=== PATIENT | female | born 1960 | race Caucasian/White ===

== ENCOUNTER 2024-04-10 10:10 | Inpatient (IN) | payer MEDICARE, OTHER ==
[2024-04-10 12:04] LABS: BASO % 0.4 % (0-2.0); EOS % 2.5 % (0-4.5); HEMATOCRIT 34.7 % (32.4-45.2); HEMOGLOBIN 10.8 GM/dL (10.7-15.3); LYMPH % 17.1 % (8-40); MCH 25.1 pg (25.7-33.7); MEAN CELL VOLUME 80.9 fl (80-96); MEAN PLT VOLUME 7.8 fl (7.5-11.1); MONO % 4.2 % (3.8-10.2); NEUT % 75.8 % (42.8-82.8); PLATELET COUNT 275 10^3/uL (134-434); RBC 4.28 M/mm3 (3.60-5.2); RDW 16.3 % (11.6-15.6); WHITE BLOOD COUNT 11.6 K/mm3 (4.0-10.0)
[2024-04-10 12:09] LABS: INR 0.99 (0.83-1.09); PROTHROMBIN TIME (PATIENT) 11.4 SEC (9.7-13.0)
[2024-04-10 12:12] LABS: ACTIVATED PTT 30.2 SECONDS (25.2-36.5)
[2024-04-10 12:36] LABS: CALCIUM 9.4 mg/dL (8.5-10.1)
[2024-04-10 12:37] LABS: ALBUMIN 2.7 g/dl (3.4-5.0); BLOOD UREA NITROGEN 19.4 mg/dL (7-18)
[2024-04-10 12:38] LABS: CREATININE 1.5 mg/dL (0.55-1.3)
[2024-04-10 12:40] LABS: BILIRUBIN,TOTAL 0.4 mg/dL (0.2-1); TOT PROT 6.3 g/dl (6.4-8.2)
[2024-04-10 12:46] LABS: N-TERMINAL BNP 263.5 pg/ml (5-125)
[2024-04-10] MEDS ORDERED: FUROSEMIDE 40 MG/4 ML INJECTABLE VIAL ONE (15:22)
[2024-04-10] MEDS: FUROSEMIDE 40 MG/4 ML INJECTABLE VIAL IVPUSH ONE (15:25)
[2024-04-10] MEDS: GABAPENTIN 300 MG CAPSULE PO SCH (22:08)
[2024-04-10] MEDS: INSULIN (LEVEMIR) 100 UNITS/ML UNITS SQ SCH (22:09)
[2024-04-10] MEDS: INSULIN ASPART SLIDING SCALE (NOVOLOG) 1 VIAL SQ SCH (22:09)
[2024-04-10 23:30] VITALS: BMI 52.9
[2024-04-11] MEDS: FLUTICASONE PROP 0.05% 16 GM NASAL SPRAY NS SCH
[2024-04-11] MEDS: LEVOTHYROXINE NA 88 MCG TABLET (FP) PO SCH (06:36)
[2024-04-11 08:15] LABS: POTASSIUM 3.8 mmol/L (3.5-5.1)
[2024-04-11 08:17] LABS: BASO % 0.5 % (0-2.0); EOS % 2.5 % (0-4.5); HEMATOCRIT 34.5 % (32.4-45.2); HEMOGLOBIN 10.6 GM/dL (10.7-15.3); LYMPH % 20.4 % (8-40); MCH 24.9 pg (25.7-33.7); MCHC 30.8 g/dl (32.0-36.0); MEAN CELL VOLUME 80.9 fl (80-96); MEAN PLT VOLUME 8.1 fl (7.5-11.1); MONO % 3.9 % (3.8-10.2); NEUT % 72.7 % (42.8-82.8); PLATELET COUNT 269 10^3/uL (134-434); RBC 4.27 M/mm3 (3.60-5.2); RDW 16.1 % (11.6-15.6); WHITE BLOOD COUNT 9.1 K/mm3 (4.0-10.0)
[2024-04-11 08:22] LABS: ALBUMIN 2.7 g/dl (3.4-5.0); CALCIUM 9.7 mg/dL (8.5-10.1)
[2024-04-11 08:23] LABS: BLOOD UREA NITROGEN 20.2 mg/dL (7-18)
[2024-04-11 08:24] LABS: MAGNESIUM 1.8 mg/dL (1.8-2.4)
[2024-04-11 08:26] LABS: CREATININE 1.4 mg/dL (0.55-1.3); PHOSPHOROUS 3.3 mg/dL (2.5-4.9)
[2024-04-11 08:27] LABS: BILIRUBIN,TOTAL 0.4 mg/dL (0.2-1); TOT PROT 6.4 g/dl (6.4-8.2)
[2024-04-11] MEDS ORDERED: PATIENT'S OWN MEDICATION (NON-FORMULARY) (Vibegron [Gemtesa] 75 MG Tablet) PO SCH (10:00)
[2024-04-11] MEDS: FAMOTIDINE 20 MG TABLET PO SCH (10:37)
[2024-04-11] MEDS: ENOXAPARIN NA (PORCINE) 40 MG/0.4 ML DISP.SYRIN SQ SCH ×2 (10:38→21:25)
[2024-04-11] MEDS: ASPIRIN COATED 81 MG TABLET.EC PO SCH (10:39)
[2024-04-11] MEDS ORDERED: FUROSEMIDE 40 MG/4 ML INJECTABLE VIAL IVPUSH SCH (14:00)
[2024-04-11] MEDS ORDERED: INSULIN (LEVEMIR) 100 UNITS/ML UNITS SQ ONE (14:03)
[2024-04-11] MEDS: INSULIN (LEVEMIR) 100 UNITS/ML UNITS SQ ONE (14:07)
[2024-04-11] MEDS: FUROSEMIDE 40 MG/4 ML INJECTABLE VIAL IVPUSH SCH (14:17)
[2024-04-11] MEDS ORDERED: FUROSEMIDE 20 MG TABLET (FP) PO SCH (17:28)
[2024-04-11] MEDS: INSULIN (LEVEMIR) 100 UNITS/ML UNITS SQ SCH (21:24)
[2024-04-11] MEDS: EZETIMIBE 10 MG TABLET (FP) PO SCH (21:25)
[2024-04-12] MEDS: INSULIN (LEVEMIR) 100 UNITS/ML UNITS SQ ONE (10:37)
[2024-04-12] MEDS: INSULIN (NOVOLOG) ASPART 100 UNITS/ML 10ML VIAL SQ SCH (10:38)
[2024-04-12] MEDS: ACETAMINOPHEN 325 MG TABLET (FP) PO PRN (14:11)
[2024-04-12 14:44] LABS: ARTERIAL BLD GAS O2 SATURATION 90.6 % (95-98); ARTERIAL BLOOD GAS BASE EXCESS 10.7 mmol/L (-2-2); ARTERIAL BLOOD GAS PO2 67.7 mmHg (80-100); ARTERIAL BLOOD GAS pH 7.304 (7.350-7.450)
[2024-04-12 14:48] LABS: ALLENS TEST POSITIVE
[2024-04-12 19:09] LABS: POTASSIUM 4.4 mmol/L (3.5-5.1)
[2024-04-12 19:12] LABS: BLOOD UREA NITROGEN 23.4 mg/dL (7-18); CALCIUM 9.5 mg/dL (8.5-10.1); MAGNESIUM 1.9 mg/dL (1.8-2.4)
[2024-04-12 19:17] LABS: CREATININE 1.7 mg/dL (0.55-1.3); PHOSPHOROUS 3.3 mg/dL (2.5-4.9)
[2024-04-13 05:48] LABS: ARTERIAL BLD GAS O2 SATURATION 96.7 % (95-98); ARTERIAL BLOOD GAS BASE EXCESS 3.6 mmol/L (-2-2); ARTERIAL BLOOD GAS PO2 111.9 mmHg (80-100)
[2024-04-13 05:50] LABS: ARTERIAL BLOOD GAS pH 7.191 (7.350-7.450)
[2024-04-13 07:39] LABS: HEMOGLOBIN 10.8 GM/dL (10.7-15.3); MCH 24.6 pg (25.7-33.7); MCHC 29.9 g/dl (32.0-36.0); MEAN CELL VOLUME 82.3 fl (80-96); MEAN PLT VOLUME 8.2 fl (7.5-11.1); PLATELET COUNT 282 10^3/uL (134-434); RBC 4.38 M/mm3 (3.60-5.2); RDW 16.5 % (11.6-15.6)
[2024-04-13 07:50] LABS: POTASSIUM 4.6 mmol/L (3.5-5.1)
[2024-04-13 07:54] LABS: CALCIUM 9.8 mg/dL (8.5-10.1)
[2024-04-13 07:56] LABS: ALBUMIN 2.9 g/dl (3.4-5.0); BLOOD UREA NITROGEN 29.7 mg/dL (7-18); MAGNESIUM 2.1 mg/dL (1.8-2.4)
[2024-04-13 07:59] LABS: BILIRUBIN,TOTAL 0.4 mg/dL (0.2-1); TOT PROT 6.9 g/dl (6.4-8.2)
[2024-04-13] MEDS: FUROSEMIDE 40 MG/4 ML INJECTABLE VIAL IVPUSH SCH (08:29)
[2024-04-13 09:24] LABS: ARTERIAL BLD GAS O2 SATURATION 98.1 % (95-98); ARTERIAL BLOOD GAS BASE EXCESS 10.6 mmol/L (-2-2); ARTERIAL BLOOD GAS pH 7.277 (7.350-7.450)
[2024-04-13 09:27] LABS: ALLENS TEST POSITIVE
[2024-04-13 09:28] LABS: VENT MODE S/T; VENT RATE 14
[2024-04-13] MEDS: INSULIN (LEVEMIR) 100 UNITS/ML UNITS SQ SCH ×2 (13:09→21:31)
[2024-04-13 16:04] LABS: ARTERIAL BLD GAS O2 SATURATION 98.3 % (95-98); ARTERIAL BLOOD GAS BASE EXCESS 8.5 mmol/L (-2-2); ARTERIAL BLOOD GAS PO2 131.4 mmHg (80-100)
[2024-04-13 16:07] LABS: ALLENS TEST POSITIVE
[2024-04-13 16:08] LABS: VENT MODE S/T; VENT RATE 20
[2024-04-13] MEDS ORDERED: INSULIN (LEVEMIR) 100 UNITS/ML UNITS SQ SCH (18:00)
[2024-04-14] MEDS: INSULIN (NOVOLOG) ASPART 100 UNITS/ML 10ML VIAL SQ SCH (07:02)
[2024-04-14] MEDS: INSULIN ASPART SLIDING SCALE (NOVOLOG) 1 VIAL SQ SCH (07:03)
[2024-04-14 08:28] LABS: POTASSIUM 4.7 mmol/L (3.5-5.1)
[2024-04-14 08:33] LABS: CALCIUM 9.7 mg/dL (8.5-10.1)
[2024-04-14 08:34] LABS: ALBUMIN 2.6 g/dl (3.4-5.0); BLOOD UREA NITROGEN 35.6 mg/dL (7-18); HEMATOCRIT 32.7 % (32.4-45.2); HEMOGLOBIN 10.4 GM/dL (10.7-15.3); MAGNESIUM 1.8 mg/dL (1.8-2.4); MCH 25.5 pg (25.7-33.7); MCHC 31.9 g/dl (32.0-36.0); PLATELET COUNT 220 10^3/uL (134-434); RBC 4.09 M/mm3 (3.60-5.2); RDW 16.3 % (11.6-15.6); WHITE BLOOD COUNT 10.4 K/mm3 (4.0-10.0)
[2024-04-14 08:37] LABS: CREATININE 1.8 mg/dL (0.55-1.3)
[2024-04-14 08:38] LABS: BILIRUBIN,TOTAL 0.3 mg/dL (0.2-1); PHOSPHOROUS 3.3 mg/dL (2.5-4.9); TOT PROT 6.2 g/dl (6.4-8.2)
[2024-04-14] MEDS: ZINC OXIDE 20% TOPICAL OINTMENT 30 GM TUBE TP SCH (11:11)
[2024-04-14 16:22] LABS: ARTERIAL BLOOD GAS BASE EXCESS 11.5 mmol/L (-2-2); ARTERIAL BLOOD GAS pH 7.372 (7.350-7.450)
[2024-04-14 16:24] LABS: ALLENS TEST POSITIVE
[2024-04-15 07:13] LABS: HEMATOCRIT 33.5 % (32.4-45.2); HEMOGLOBIN 10.6 GM/dL (10.7-15.3); MCH 25.3 pg (25.7-33.7); MCHC 31.6 g/dl (32.0-36.0); MEAN PLT VOLUME 8.1 fl (7.5-11.1); PLATELET COUNT 293 10^3/uL (134-434); RBC 4.19 M/mm3 (3.60-5.2); RDW 16.7 % (11.6-15.6); WHITE BLOOD COUNT 10.6 K/mm3 (4.0-10.0)
[2024-04-15 07:43] LABS: POTASSIUM 4.2 mmol/L (3.5-5.1)
[2024-04-15 07:45] LABS: CALCIUM 9.6 mg/dL (8.5-10.1)
[2024-04-15 07:46] LABS: ALBUMIN 2.6 g/dl (3.4-5.0); BLOOD UREA NITROGEN 37.2 mg/dL (7-18); MAGNESIUM 1.7 mg/dL (1.8-2.4)
[2024-04-15 07:49] LABS: CREATININE 1.5 mg/dL (0.55-1.3); PHOSPHOROUS 2.9 mg/dL (2.5-4.9)
[2024-04-15 07:50] LABS: BILIRUBIN,TOTAL 0.3 mg/dL (0.2-1); TOT PROT 6.2 g/dl (6.4-8.2)
[2024-04-15] MEDS: INSULIN (NOVOLOG) ASPART 100 UNITS/ML 10ML VIAL SQ SCH ×2 (10:52→11:51)
[2024-04-15] MEDS: SPIRONOLACTONE 25 MG TABLET PO SCH (11:50)
[2024-04-15] MEDS: ALBUTEROL SO4 HFA INHALER IH PRN (13:52)
[2024-04-15] MEDS: TORSEMIDE 100 MG TABLET PO SCH (13:52)
[2024-04-15] MEDS: MAGNESIUM 2GM/50ML STERILE WATER IVPB IVPB ONE (15:37)
[2024-04-15] MEDS: INSULIN (LEVEMIR) 100 UNITS/ML UNITS SQ SCH (23:01)
[2024-04-16 07:34] LABS: HEMATOCRIT 33.7 % (32.4-45.2); HEMOGLOBIN 10.5 GM/dL (10.7-15.3); MCH 24.8 pg (25.7-33.7); MCHC 31.1 g/dl (32.0-36.0); MEAN CELL VOLUME 79.9 fl (80-96); MEAN PLT VOLUME 7.9 fl (7.5-11.1); PLATELET COUNT 273 10^3/uL (134-434); RBC 4.21 M/mm3 (3.60-5.2); WHITE BLOOD COUNT 9.1 K/mm3 (4.0-10.0)
[2024-04-16 08:18] LABS: POTASSIUM 3.9 mmol/L (3.5-5.1)
[2024-04-16 08:27] LABS: ALBUMIN 2.7 g/dl (3.4-5.0); BILIRUBIN,TOTAL 0.4 mg/dL (0.2-1); BLOOD UREA NITROGEN 32.5 mg/dL (7-18); CALCIUM 9.7 mg/dL (8.5-10.1); CREATININE 1.5 mg/dL (0.55-1.3); MAGNESIUM 1.7 mg/dL (1.8-2.4); TOT PROT 6.5 g/dl (6.4-8.2)
[2024-04-16 15:34] LABS: ARTERIAL BLD GAS O2 SATURATION 92.8 % (95-98); ARTERIAL BLOOD GAS BASE EXCESS 15.4 mmol/L (-2-2); ARTERIAL BLOOD GAS PO2 65.4 mmHg (80-100); ARTERIAL BLOOD GAS pH 7.435 (7.350-7.450)
[2024-04-16 15:35] LABS: ALLENS TEST POSITIVE
[2024-04-17] MEDS ORDERED: INSULIN (LEVEMIR) 100 UNITS/ML UNITS SQ ONE (07:29)
[2024-04-18 10:39] VITALS: BP 138/71; PULSE 85; RESP 20; TEMP 97.9
== END 2024-04-18 10:54 | disposition home or self-care (01) | DRG 291 ==
LOC: JER 10:10 → JERBED 15:11 → J4W 18:51 → OBSVTOIN 04-11 18:54
PROVIDERS: ADMIT Internal Medicine; ATTEND Internal Medicine
DX: I13.0 Hypertensive heart and chronic kidney disease with heart failure and stage 1 through stage 4 chronic kidney disease, or unspecified chronic kidney disease (principal); I50.33 Acute on chronic diastolic (congestive) heart failure; J96.21 Acute and chronic respiratory failure with hypoxia; J96.22 Acute and chronic respiratory failure with hypercapnia; E66.2 Morbid (severe) obesity with alveolar hypoventilation; Z68.43 Body mass index [BMI] 50.0-59.9, adult; J44.9 Chronic obstructive pulmonary disease, unspecified; E11.22 Type 2 diabetes mellitus with diabetic chronic kidney disease; N18.9 Chronic kidney disease, unspecified; E78.5 Hyperlipidemia, unspecified; E03.9 Hypothyroidism, unspecified; J45.909 Unspecified asthma, uncomplicated; G47.33 Obstructive sleep apnea (adult) (pediatric); Z85.3 Personal history of malignant neoplasm of breast
CPT/HCPCS: 0241U-QW; 36415; 36600; 71045-TC-FY; 80048; 80053; 82803; 82962; 83735; 83880; 84100; 84484; 85025; 85027; 85610; 85730; 93005; 93010; 93306-TC; 94660; 94761; 97116-GP; 97163-GP; 99285-25; G0378